=== PATIENT | female | born 1950 | race Caucasian/White ===

== ENCOUNTER 2019-11-12 17:13 | Emergency (ER) | payer MEDICARE, OTHER ==
[~2019-11-12] VITALS: Ht 175 cm; Wt 69.0 kg
--- NOTE | 2019-11-12 18:17 | Diagnostic Imaging Report ---
INDICATION: Trauma. COMPARISON: Ankle radiograph performed concurrently. TECHNIQUE: AP and lateral views of the right tibia and fibula were obtained. FINDINGS: Acute spiral type fracture in the distal one-third of the tibial diaphysis. The distal fracture fragment is displaced medially by approximately 7 mm and anteriorly displaced by approximately 12 mm. No angulation of the distal fracture fragment. There is an acute and minimally comminuted fracture of the distal one-third of the fibular diaphysis. This has a predominant segmental type configuration and the distal fracture fragment has slight anterior angulation measuring approximately 10 degrees. The segmental fracture fragment is displaced posteriorly by approximately 5 mm. No proximal tibial or fibular fracture. No soft tissue gas. IMPRESSION: 1. Simple spiral fracture of the distal one-third of the tibial diaphysis. 2. Mildly comminuted fracture of the distal one-third of the fibular diaphysis. Dictated by: Dictated on workstation # [id number]
--- NOTE | 2019-11-12 18:18 | Diagnostic Imaging Report ---
INDICATION: Ankle pain after fracture. COMPARISON: Tibia and fibula radiograph performed concurrently. TECHNIQUE: Three views of the right ankle were obtained. FINDINGS: Simple fracture of the distal tibial diaphysis and mildly comminuted fracture of the distal fibular diaphysis are detailed in the tibia and fibula report. No fracture of the talar dome. Ankle mortise remains congruent. No calcaneal fracture. Posterior subtalar joint is preserved. IMPRESSION: 1. Acute fracture of the distal tibia and fibular diaphyses are detailed on the report for the tibia and fibula. 2. No additional fracture about the ankle. Dictated by: Dictated on workstation # [id number]
--- NOTE | 2019-11-12 19:16 | ED Lower Extremity ---
General Chief Complaint: Lower Extremity Stated Complaint: ANKLE FRACTURE Nursing Triage Note: brought in by ems for R ankle pain after a fall. Has swelling and deformity to R lower leg. Is in EMS air cast. Nursing Sepsis Screen: No Definite Risk History of Present Illness Date Seen by Provider: Nov 12, 2019 Time Seen by Provider: 17:10 Initial Comments The patient is a 69-year-old female who presents for evaluation of right lower leg pain, swelling and deformity after a ground-level slip and fall prior to arrival. Patient was walking outside when she slipped and thinks she inverted h er ankle. She denies hitting or hurting any other part of her body significantly during the episode and specifically denies hitting her head. Not on any blood thinners. Allergies and Home Medications Allergies Coded Allergies: acetaminophen (Verified Adverse Reaction, Unknown, makes glucose high, 11/12/19) Patient Home Medication List Home Medication List Reviewed: Yes Review of Systems Constitutional: no symptoms reported All Other Systems Reviewed Negative Unless Noted: Yes (Negative excepted noted.) Past [facility] Hx Past Med/Social Hx: Reviewed Nursing Past Med/Soc Hx Patient Social History Alcohol Use: Rarely Uses Recreational Drug Use: No Smoking Status: Current Someday Smoker Type Used: Cigarettes 2nd Hand Smoke Exposure: Yes Recent Foreign Travel: No Contact w/Someone Who Travel: No Recent Infectious Disease Expo: No Recent Hopitalizations: No Seasonal Allergies Seasonal Allergies: No Past Medical History Surgeries: Yes Section Respiratory: No Cardiac: No Neuropathy Genitourinary: No Gastrointestinal: No Musculoskeletal: No Endocrine: Yes Hypothyroidsim, Diabetes, Non-Insulin dep HEENT: No Cancer: No Psychosocial: Yes Anxiety Integumentary: No Family Medical History Reviewed Nursing Family Hx Physical Exam Vital Signs Vital Signs - First Documented 11/12/19 17:30 Temp 36.0 Pulse 81 Resp 16 B/P (MAP) 131/74 (93) Pulse Ox 99 Capillary Refill : Less Than 3 Seconds Height, Weight, BMI Height: '" Weight: lbs. oz. kg; 22.00 BMI Method: General Appearance: no apparent distress This is an elderly female appearing nontoxic and in no acute distress. Head is normocephalic and atraumatic. Neck is supple and nontender. Oropharynx is moist. Lungs are clear to auscultation at all stations. There is a normal S1 and S2 without rubs or gallops and capillary refill is appropriate, less than 2 seconds globally. Abdomen is soft, nontender and nondistended. Skin is warm and dry without cyanosis, clubbing or edema. Psychiatrically, the patient demonstrates appropriate mood and affect and is alert. From a musculoskeletal standpoint, evaluation of the right lower extremity is remarkable for obvious closed deformity to the right lower leg just above the ankle. Associated tenderness, worst above the medial malleolus of the right ankle. No pain with ranging of the right knee or digits of the right foot. Right lower extremity is neurovascular intact distally with strength 5 out of 5, sensation intact to light touch in all nerve distributions, DP and PT pulses 2+, capillary refill less than 2 seconds, foot warm and well-perfused. Progress/Results/Core Measures Results/Orders My Orders Orders - ADONAY CHU MD Ankle 3 View Right (11/12/19 17:38) Tibia Fibula 2 View Right (11/12/19 17:38) Ice: Apply To Affected Area (11/12/19 17:38) Oxycodone Immediate Rel Tablet (Oxyir Ta (11/12/19 17:45) Medications Given in ED Current Medications Medications Dose Ordered Sig/Alexandr Route Start Time Stop Time Status Last Admin Dose Admin Oxycodone HCl 5 mg ONCE ONCE PO 11/12/19 17:45 11/12/19 17:46 DC 11/12/19 17:54 5 MG Vital Signs/I&O 11/12/19 17:30 Temp 36.0 Pulse 81 Resp 16 B/P (MAP) 131/74 (93) Pulse Ox 99 Blood Pressure Mean: 93 Progress Progress Note : Time: 19:15 Progress Note Patient with complex fractures of right distal tibia and fibula at the same level. We have no orthopedic coverage at [facility] at this time. Therefore, case is discussed with Dr. Muhammad of [facility] orthopedics who recommends transfer to [facility] for attention from trauma surgery and trauma orthopedics for definitive orthopedic fixation. We'll place a splint prior to transfer. Stable for transfer at this time. Patient is graciously accepted in transfer to [facility] by Dr. Parker. Diagnostic Imaging Comments INDICATION: Ankle pain after fracture. COMPARISON: Tibia and fibula radiograph performed concurrently. TECHNIQUE: Three views of the right ankle were obtained. FINDINGS: Simple fracture of the distal tibial diaphysis and mildly comminuted fracture of the distal fibular diaphysis are detailed in the tibia and fibula report. No fracture of the talar dome. Ankle mortise remains congruent. No calcaneal fracture. Posterior subtalar joint is preserved. IMPRESSION: 1. Acute fracture of the distal tibia and fibular diaphyses are detailed on the report for the tibia and fibula. 2. No additional fracture about the ankle. Dictated by: Dictated on workstation # [id number] TIBIA FIBULA 2 VIEW RIGHT INDICATION: Trauma. COMPARISON: Ankle radiograph performed concurrently. TECHNIQUE: AP and lateral views of the right tibia and fibula were obtained. FINDINGS: Acute spiral type fracture in the distal one-third of the tibial diaphysis. The distal fracture fragment is displaced medially by approximately 7 mm and anteriorly displaced by approximately 12 mm. No angulation of the distal fracture fragment. There is an acute and minimally comminuted fracture of the distal one-third of the fibular diaphysis. This has a predominant segmental type configuration and the distal fracture fragment has slight anterior angulation measuring approximately 10 degrees. The segmental fracture fragment is displaced posteriorly by approximately 5 mm. No proximal tibial or fibular fracture. No soft tissue gas. IMPRESSION: 1. Simple spiral fracture of the distal one-third of the tibial diaphysis. 2. Mildly comminuted fracture of the distal one-third of the fibular diaphysis. Dictated by: Dictated on workstation # [id number] Departure Impression Primary Impression: Closed fracture of right distal tibia Qualified Codes: S82.301A - Unspecified fracture of lower end of right tibia, initial encounter for closed fracture Additional Impression: Closed fracture of right distal fibula Qualified Codes: S82.831A - Other fracture of upper and lower end of right fibula, initial encounter for closed fracture Disposition: 02 XFER SHT-TRM HOSP Condition: Stable Transfer Transfer Reason: Exceeds level of care Transfer Progress Notes NO ORTHOPEDIC COVERAGE AT [facility] THIS WEEKEND; [facility]TH[facility] RECCS TRANSFER FOR DEFINITIVE SURGICAL ATTENTION. Method of Transfer: EMS Departure-Patient Inst. Referrals: NO,LOCAL PHYSICIAN (PCP/Family) Primary Care Physician ADONAY CHU MD Nov 12, 2019 19:15
[2019-11-12] MEDS ORDERED: fentaNYL INJECTION 100 MCG/2 ML AMP IVP ONE ×2 (19:30→22:15)
[2019-11-12 20:12] LABS: WHITE BLOOD COUNT 6.3 10^3/uL (4.3-11.0)
[2019-11-12 20:13] LABS: MEAN PLATELET VOLUME 9.5 FL (7.4-10.4)
[2019-11-12 20:25] LABS: INR 0.9 (0.8-1.4); PROTHROMBIN TIME PATIENT 12.5 SEC (12.2-14.7)
[2019-11-12 20:27] LABS: ALANINE AMINOTRANSFERASE 26 U/L (0-55); ALBUMIN 4.2 GM/DL (3.2-4.5); ALKALINE PHOSPHATASE 89 U/L (40-136); BILIRUBIN,TOTAL 0.4 MG/DL (0.1-1.0); BUN/CREATININE RATIO 24; CALCIUM 9.5 MG/DL (8.5-10.1); CARBON DIOXIDE 26 MMOL/L (21-32); CHLORIDE 96 MMOL/L (98-107); GFR ESTIMATED > 60; GLUCOSE 120 MG/DL (70-105); POTASSIUM 3.8 MMOL/L (3.6-5.0); SODIUM 135 MMOL/L (135-145); TOTAL PROTEIN 6.9 GM/DL (6.4-8.2)
[2019-11-12 21:56] VITALS: BP 141/65
[2019-11-12 22:20] VITALS: BP 141/65
== END 2019-11-12 22:20 | disposition short-term general hospital (02) ==
LOC: ER FS 17:14 → EDBD 17:14 → ER FS 22:20
DX: S82.241A Displaced spiral fracture of shaft of right tibia, initial encounter for closed fracture (principal); S82.441A Displaced spiral fracture of shaft of right fibula, initial encounter for closed fracture; F17.210 Nicotine dependence, cigarettes, uncomplicated; Z88.6 Allergy status to analgesic agent; W01.0XXA Fall on same level from slipping, tripping and stumbling without subsequent striking against object, initial encounter
CPT/HCPCS: 36415; 73590; 73610; 80053; 85027; 85610; 85730